=== PATIENT | female | born 1985 | race Caucasian/White ===

== ENCOUNTER 2019-05-02 11:44 | Emergency (ER) | payer OTHER, SELFPAY ==
[2019-05-02] VITALS (7 sets, daily range): BP systolic 110–127; BP diastolic 62–78; PULSE 65–95; RESP 12–17; TEMP 36.9; O2SAT 97–99; BMI 22.8
--- NOTE | 2019-05-02 11:56 | DI.RAD.S_ITS ---
PROCEDURE: XR CHEST 1V INDICATIONS: chest pain TECHNIQUE: One view of the chest was acquired. COMPARISON: None. FINDINGS: Surgical changes and devices: None. Lungs and pleura: There is a faint hazy opacity projecting over the right lung base. Prominence of pulmonary vasculature noted. No pleural effusions or pneumothorax. Mediastinum: Mediastinal contours appear normal. Heart size is normal. Bones and chest wall: No suspicious bony lesions. Overlying soft tissues appear unremarkable. IMPRESSION: Faint hazy right lung base opacity likely representing atelectasis or superimposition artifact, less likely atelectasis or pneumonia. Dictated by: Miguel Cade M.D. on 05/02/2019 at 12:41 Approved by: Miguel Cade M.D. on 05/02/2019 at 12:43
--- NOTE | 2019-05-02 12:01 | DI.RAD.S_ITS ---
PROCEDURE: XR ANKLE LT MIN 3V INDICATIONS: injury pain TECHNIQUE: 3 views of the ankle were acquired. COMPARISON: None. FINDINGS: Bones: No fractures or dislocations. Ankle mortise is normally aligned. No suspicious bony lesions. Soft tissues: There is a trace ankle joint effusion. There is moderate soft tissue edema overlying the left lateral malleolus. IMPRESSION: Moderate soft tissue edema overlying the left lateral malleolus, without acute underlying left ankle fracture or dislocation. Consider followup radiographs in 7-10 days if there is continued clinical concern. Dictated by: Miguel Cade M.D. on 05/02/2019 at 12:43 Approved by: Miguel Cade M.D. on 05/02/2019 at 12:45
[2019-05-02 12:34] LABS: Add Manual Diff / Slide Review NO; Basophils Absolute Auto 0 /uL (0-100); Basophils Percent Auto 0.5 % (0-2); Eosinophils Absolute Auto 0 /uL (0-450); Eosinophils Percent Auto 0.3 % (2-4); Hemoglobin 14.6 g/dL (12.0-16.0); Lymphocytes Absolute Auto 700 /uL (1100-4500); Lymphocytes Percent Auto 9.1 % (25-40); Mean Corpuscular HGB Conc 33.9 % (30-36); Mean Corpuscular Volume 91.7 fL (80-100); Monocytes Absolute Auto 500 /uL (0-900); Monocytes Percent Auto 6.5 % (3-14); Neutrophils Absolute Auto 6600 /uL (1500-7000); Neutrophils Percent Auto 83.6 % (50-75); Platelet Count 235 X10^3/uL (150-400); Red Blood Cell Count 4.69 X10^6/uL (4.0-5.2); Red Cell Distribution Width 12.4 % (11.6-14.8); White Blood Cell Count 7.9 X10^3/uL (4.5-11.0)
--- NOTE | 2019-05-02 12:35 | PC.NURSE ---
states standing, then developed abdominal pain, +nausea, +hot then syncope, father in law woke her up, stood her up then passed out again, pt sitting down and again passed out. occured this morning at 9am, every 5 minutes. +food allergies. denies fever,coughing,vomiting or diarrhea.
[2019-05-02 12:41] LABS: INR 0.9 (0.9-1.3); Prothrombin Time 10.8 SECONDS (10.1-12.7)
[2019-05-02 12:44] LABS: PTT Partial Thromboplastin Tim 24 SECONDS (26.4-36.2)
[2019-05-02 12:46] LABS: Alanine Aminotransferase 27 IU/L (9-52); Albumin 4.8 g/dL (3.5-5.0); Albumin Globulin Ratio 1.7 (1.0-2.8); Alkaline Phosphatase 63 U/L (38-126); Aspartate Aminotransferase 20 IU/L (14-36); BUN Creatinine Ratio 13.8 (6-22); Bilirubin Total 0.7 mg/dL (0.2-1.3); Blood Urea Nitrogen 11 mg/dL (7-17); Calcium 9.7 mg/dL (8.4-10.2); Carbon Dioxide 26 mmol/L (22-32); Chloride 106 mmol/L (98-107); Creatine Kinase 43 U/L (30-135); Estimated Glomerular Filt Rate > 60.0 mL/min (>60); Globulin 2.9 g/dL (1.7-4.1); Glucose 98 mg/dL (70-100); HEMOLYSIS < 15 (0-50); Lipase 170 U/L (23-300); Potassium 4.4 mmol/L (3.4-5.1); Sodium 142 mmol/L (137-145); Total Protein 7.7 g/dL (6.3-8.2)
[2019-05-02 12:57] LABS: Troponin I < 0.012 ng/mL (0.01-0.034)
--- NOTE | 2019-05-02 13:19 | ED.SYNCOPE ---
HPI - Syncope General Chief Complaint: Syncope Stated Complaint: passed out 3 times and ankle m(L) hurting BB odd Time Seen by Provider: 05/02/19 11:56 Source: patient Mode of arrival: ambulatory Limitations: no limitations History of Present Illness HPI narrative: Patient presents emergency department complaining of syncopal episodes today. Patient states she woke up feeling fine, and was standing in her driveway, single bite her children when she suddenly began to feel lightheaded. Patient's family told her that her face turned white, and the patient began to collapse. She twisted her ankle in the process. She states 1 of her family members grabbed her and helped her up, but she was still feeling faint and began to collapse again. Patient states she thinks that she completely lost consciousness that time, but only for a couple of seconds. She passed out the 3rd time while standing but very briefly. She states all 3 episodes happen within a period of just a couple minutes. She was helped to a chair, where she sat for about an hour. She states she had 1 further episode of dizziness, and was told her face turned white, but did not lose consciousness that time. Patient states that her [id number] who took her blood pressure a few different times, and was found to be 110-112 over 70s the both of the 1st 2 times. Patient states when she had the episode of feeling dizzy while she was sitting down, her [id number] took her blood pressure, and found that the systolic was 105. She denies any chest pain or shortness of breath. No nausea vomiting or diarrhea. No recent illnesses. No heavy vaginal bleeding or bleeding from anywhere else. Patient states she has never fainted before in her life. She does not recall feeling any palpitations at the time of the syncope or near syncope. She denies any recent head injuries. She does not drink any alcohol. Patient states she thinks that she drinks enough water, and has been eating well lately. Patient states she is on spironolactone for a skin condition, but states that she has not had the dose of this changed in 3 years. Patient states that she tries to drink plenty of fluids, and it is helpful either. She does not smoke or use any drugs. She is not known to be , and states she has not had a period in 2 years, because she is on control. No lower abdominal pain. Related Data Home Medications Medication Instructions Recorded Confirmed L norgest/e.estradiol-e.estrad 1 tab PO BEDTIME 05/02/19 05/02/19 [Camrese] spironolactone 100 mg PO BEDTIME 05/02/19 05/02/19 trazodone 200 mg PO BEDTIME 05/02/19 05/02/19 Allergies Allergy/AdvReac Type Severity Reaction Status Date / Time No Known Drug Allergies Allergy Verified 05/02/19 11:54 Review of Systems Constitutional Denies chills, Denies fever(s), Denies lethargy and Denies weakness Eyes Denies change in vision, Denies eye discharge, Denies irritation and Denies loss of vision ENT Ears, Nose, Mouth, and Throat: Denies change in voice, Denies neck pain and Denies sore throat Cardiovascular Denies chest pain, Reports syncope, Denies irregular heart rhythm, Reports lightheadedness, Denies palpitations, Denies dyspnea, Denies dyspnea on exertion and Denies orthopnea Respiratory Denies cough, Denies dyspnea, Denies dyspnea on exertion and Denies wheezing Gastrointestinal Gastrointestinal: Denies abdominal pain, Denies change in bowel habits, Denies diarrhea, Denies nausea and Denies vomiting Genitourinary Denies hematuria, Denies flank pain, Denies urinary incontinence and Denies urinary urgency Musculoskeletal Denies neck pain Integumentary/Breasts Denies pruritus, Denies erythema, Denies rash and Denies wounds Neurologic Denies confusion, Reports syncope, Denies loss of vision and Denies weakness Psychiatric Denies anxiety, Denies confusion, Denies depression, Denies homicidal ideation and Denies suicidal ideation Endocrine Denies palpitations Hematologic/Lymphatic Denies easy bruising Allergic/Immunologic Denies wheezing [facility] Medical History Acne (Acute) Surgical History No pertinent past surgical history (Acute) Social History (Updated 05/02/19 @ 13:27 by Jo-Ann Rene MD) Smoking Status: Never smoker Exam Initial Vital Signs Initial Vital Signs: Vital Signs Temperature 98.4 F 05/02/19 11:54 Pulse Rate 95 H 05/02/19 11:54 Respiratory Rate 05/02/19 11:54 Blood Pressure 127/74 05/02/19 11:54 Pulse Oximetry 98 05/02/19 11:54 Const General: cooperative and well developed Nutritional Appearance: well nourished Orientation: alert, awake, oriented x3 and not confused [facility] Head: normocephalic and atraumatic Ears: external ears normal Nose: external nose normal and No nasal discharge Face and sinus: face symmetric and No dry mucous membranes Mouth: oral mucosae normal and moist mucous membranes Teeth and gingiva: dentition normal Eyes General: appearance normal, both eyes and all related structures Eyelids: eyelids normal Conjunctivae: conjunctivae normal Sclera: sclerae normal Pupils: PERRL EOM: EOM intact bilaterally Neck Neck: normal visual inspection, trachea midline, No lymphadenopathy, No midline deformity and No JVD Lymphatic: No lymphedema Chest Chest: normal inspection of the chest Resp Effort & Inspection: normal respiratory effort, able to speak in complete sentences, no respiratory distress and no use of accessory muscles Auscultation: clear to auscultation bilaterally, no rales, no rhonchi and no wheezes Cardio Rate: regular rate Rhythm: regular rhythm Heart Sounds: no click, no gallops, no murmurs and no rubs Pulses: normal peripheral pulses GI Inspection: non-distended Palpation: soft, no hepatosplenomegaly, No guarding, No pulsatile mass and No tender Auscultation: normal bowel sounds Back/Spine/Pelvis Back: No CVA tenderness Cervical Spine: cervical ROM normal and No pain with cervical ROM Thoracic/Lumbar Spine: thoracic and lumbar spine normal to inspection Skin General: no rashes or lesions noted, No jaundice and No petechiae Neuro General: alert, oriented x3, gait normal and no focal motor deficits Speech: speech normal Extrem General: full ROM, no pedal edema and no calf tenderness Other: Patient has moderate edema over her left lateral malleolus, and mild tenderness. No deformity. Distal pulses are intact. Psych Appearance: well kempt Mental Status: mental status grossly normal Attitude: cooperative Thought Content: normal and suicidality Judgment: judgment good Course Course Narrative: Patient appeared well overall in the emergency department. Her cardiac rhythm was normal, and her blood pressure was also normal. She was worked up for her syncopal episodes with EKG, chest x-ray, and labs, and was worked up for her ankle injury with an x-ray of the ankle. X-rays of the chest and ankle were negative. The patient was placed in an air splint and given a pair of crutches. She had been given IV fluids in the emergency department, and reported feeling better. She had gotten up from the bed to be wheeled to the bathroom, as she did not want to walk on her ankle, and had done fine with this, with no further episodes of lightheadedness. We have discussed follow-up for the patient's syncopal episodes, and that it would be beneficial for her to discuss wearing a Holter monitor with her primary care physician. There is no evidence of an emergent cause of the patient's symptoms today. However, we have discussed that should the patient have more episodes like this in the next 24 hours, she would most likely benefit from admission to the hospital with monitoring. Orders Ordered: ED Orders 05/02/19 11:52 EKG-12 Lead Stat 05/02/19 11:56 XR chest 1V Stat 05/02/19 12:01 XR ankle LT min 3V Stat 05/02/19 12:24 Urinalysis and Microscopic Stat 05/02/19 12:25 Complete Blood Count AUTO DIFF Stat Comprehensive Metabolic Panel Stat Lipase Stat Partial Thromboplastin Time Stat Prothrombin Time INR Stat Troponin & CK Cardiac Panel Stat Discontinued Medications Sodium Chloride (Normal Saline 0.9%) 1,000 mls @ 500 mls/hr IV BOLUS ONE Stop: 05/02/19 15:57 Last Infusion: 05/02/19 15:50 Dose: 0 mls/hr Admin: 05/02/19 14:30 Dose: 500 mls/hr Vital Signs - 8 hr 05/02/19 11:54 05/02/19 12:00 05/02/19 12:54 Temperature 98.4 F Pulse Rate 95 H 82 74 Respiratory Rate 17 12 17 Blood Pressure 127/74 Blood Pressure [Right Arm] 121/62 110/68 Pulse Oximetry 98 97 99 05/02/19 13:45 05/02/19 14:49 05/02/19 15:54 Temperature Pulse Rate 82 65 69 Respiratory Rate 16 Blood Pressure Blood Pressure [Right Arm] 112/66 123/65 116/78 Pulse Oximetry 97 98 05/02/19 15:55 Temperature Pulse Rate 70 Respiratory Rate Blood Pressure Blood Pressure [Right Arm] 116/70 Pulse Oximetry MDM - Syncope Medical Records Attestation: I reviewed the patient's medical records. Lab Data Attestation: I reviewed the patient's lab results. Result diagrams: 05/02/19 12:25 05/02/19 12:25 Lab Results 05/02/19 05/02/19 05/02/19 Range/Units 12:24 12:25 12:25 WBC 7.9 (4.5-11.0) X10^3/uL RBC 4.69 (4.0-5.2) X10^6/uL Hgb 14.6 (12.0-16.0) g/dL Hct 43.0 (36-46) % MCV 91.7 (80-100) fL MCH 31.0 (26-34) PG MCHC 33.9 (30-36) % RDW 12.4 (11.6-14.8) % Plt Count 235 (150-400) X10^3/uL Neut % (Auto) 83.6 H (50-75) % Lymph % (Auto) 9.1 L (25-40) % Davidson % (Auto) 6.5 (3-14) % Eos % (Auto) 0.3 L (2-4) % Baso % (Auto) 0.5 (0-2) % Neut # (Auto) 6600 (0093-1831) /uL Lymph # (Auto) 700 L (8275-0975) /uL Davidson # (Auto) 500 (0-900) /uL Eos # (Auto) 0 (0-450) /uL Baso # (Auto) 0 (0-100) /uL PT 10.8 (10.1-12.7) SECONDS INR 0.9 (0.9-1.3) APTT 24 L (26.4-36.2) SECONDS Sodium (137-145) mmol/L Potassium (3.4-5.1) mmol/L Chloride (98-107) mmol/L Carbon Dioxide (22-32) mmol/L BUN (7-17) mg/dL Creatinine (0.52-1.04) mg/dL Estimated GFR (>60) mL/min BUN/Creatinine Ratio (6-22) Glucose (70-100) mg/dL Calcium (8.4-10.2) mg/dL Total Bilirubin (0.2-1.3) mg/dL AST (14-36) IU/L ALT (9-52) IU/L Alkaline Phosphatase (38-126) U/L Total Creatine Kinase (30-135) U/L CK-MB (CK-2) CK-MB (CK-2) Rel Index Troponin I (0.01-0.034) ng/mL Total Protein (6.3-8.2) g/dL Albumin (3.5-5.0) g/dL Globulin (1.7-4.1) g/dL Albumin/Globulin Ratio (1.0-2.8) Lipase (23-300) U/L Urine Color Yellow Urine Appearance Clear Urine pH 6.5 (4.5-8.0) Ur Specific [place] 1.010 (1.000-1.035) Urine Protein Negative (Negative) Urine Glucose (UA) Negative (Negative) g/dL Urine Ketones Negative (NEGATIVE) Urine Occult Blood Negative (Negative) Urine Nitrate Negative (Negative) Urine Bilirubin Negative (NEGATIVE) Urine Urobilinogen 0.2 (0.2) E.U./dL Ur Leukocyte Esterase Negative (NEGATIVE) Urine RBC None seen (0-5/HPF) Urine WBC None seen (0-5/HPF) Ur Squamous Epith Cells 1-5 /hpf (0-5/HPF) Urine Bacteria Occasional (0-1) (None) Urine Mucus 1+ H (Negative) Ur Culture Indicated? Cult not indicated 05/02/19 Range/Units 12:25 WBC (4.5-11.0) X10^3/uL RBC (4.0-5.2) X10^6/uL Hgb (12.0-16.0) g/dL Hct (36-46) % MCV (80-100) fL MCH (26-34) PG MCHC (30-36) % RDW (11.6-14.8) % Plt Count (150-400) X10^3/uL Neut % (Auto) (50-75) % Lymph % (Auto) (25-40) % [place] % (Auto) (3-14) % Eos % (Auto) (2-4) % Baso % (Auto) (0-2) % Neut # (Auto) (2941-4667) /uL Lymph # (Auto) (0690-7026) /uL Davidson # (Auto) (0-900) /uL Eos # (Auto) (0-450) /uL Baso # (Auto) (0-100) /uL PT (10.1-12.7) SECONDS INR (0.9-1.3) APTT (26.4-36.2) SECONDS Sodium 142 (137-145) mmol/L Potassium 4.4 (3.4-5.1) mmol/L Chloride 106 (98-107) mmol/L Carbon Dioxide 26 (22-32) mmol/L BUN 11 (7-17) mg/dL Creatinine 0.80 (0.52-1.04) mg/dL Estimated GFR > 60.0 (>60) mL/min BUN/Creatinine Ratio 13.8 (6-22) Glucose 98 (70-100) mg/dL Calcium 9.7 (8.4-10.2) mg/dL Total Bilirubin 0.7 (0.2-1.3) mg/dL AST 20 (14-36) IU/L ALT 27 (9-52) IU/L Alkaline Phosphatase 63 (38-126) U/L Total Creatine Kinase 43 (30-135) U/L CK-MB (CK-2) TNP CK-MB (CK-2) Rel Index TNP Troponin I < 0.012 (0.01-0.034) ng/mL Total Protein 7.7 (6.3-8.2) g/dL Albumin 4.8 (3.5-5.0) g/dL Globulin 2.9 (1.7-4.1) g/dL Albumin/Globulin Ratio 1.7 (1.0-2.8) Lipase 170 (23-300) U/L Urine Color Urine Appearance Urine pH (4.5-8.0) Ur Specific [place] (1.000-1.035) Urine Protein (Negative) Urine Glucose (UA) (Negative) g/dL Urine Ketones (NEGATIVE) Urine Occult Blood (Negative) Urine Nitrate (Negative) Urine Bilirubin (NEGATIVE) Urine Urobilinogen (0.2) E.U./dL Ur Leukocyte Esterase (NEGATIVE) Urine RBC (0-5/HPF) Urine WBC (0-5/HPF) Ur Squamous Epith Cells (0-5/HPF) Urine Bacteria (None) Urine Mucus (Negative) Ur Culture Indicated? Point of Care Testing Test Results Negative Imaging Data Ankle x-ray: Radiologist's impression: PROCEDURE: XR ANKLE LT MIN 3V INDICATIONS: injury pain TECHNIQUE: 3 views of the ankle were acquired. COMPARISON: None. FINDINGS: Bones: No fractures or dislocations. Ankle mortise is normally aligned. No suspicious bony lesions. Soft tissues: There is a trace ankle joint effusion. There is moderate soft tissue edema overlying the left lateral malleolus. IMPRESSION: Moderate soft tissue edema overlying the left lateral malleolus, without acute underlying left ankle fracture or dislocation. Consider followup radiographs in 7-10 days if there is continued clinical concern. Dictated by: Miguel Cade M.D. on 05/02/2019 at 12:43 Approved by: Miguel Cade M.D. on 05/02/2019 at 12:45 Chest x-ray: Radiologist's impression: PROCEDURE: XR CHEST 1V INDICATIONS: chest pain TECHNIQUE: One view of the chest was acquired. COMPARISON: None. FINDINGS: Surgical changes and devices: None. Lungs and pleura: There is a faint hazy opacity projecting over the right lung base. Prominence of pulmonary vasculature noted. No pleural effusions or pneumothorax. Mediastinum: Mediastinal contours appear normal. Heart size is normal. Bones and chest wall: No suspicious bony lesions. Overlying soft tissues appear unremarkable. IMPRESSION: Faint hazy right lung base opacity likely representing atelectasis or superimposition artifact, less likely atelectasis or pneumonia. Dictated by: Miguel Cade M.D. on 05/02/2019 at 12:41 Approved by: Miguel Cade M.D. on 05/02/2019 at 12:43 ECG Data Attestation: I personally reviewed and interpreted this ECG as follows: (See below) Interpretation: Twelve lead EKG performed May 02, 2019 1152, as follows: Regular ventricular rhythm with a rate of 71 beats per minute GA interval 150 milliseconds QRS duration 86 millisecond QTC interval 373 millisecond No ectopy No significant ST T wave changes Interpretation: Sinus rhythm with sinus arrhythmia; no signs of acute ischemia; normal EKG as interpreted by ED MD. Discharge Plan Departure Patient Disposition: Home Clinical Impression: Syncope Qualifiers: Syncope type: unspecified Qualified Code(s): R55 - Syncope and collapse Discharge Date/Time: 05/02/19 16:04 Interventions: ED Discharge Assessment Last Done: 05/02/19 16:04 Instructions: DI for Syncope in Adults (Fainting) Activity Restrictions/Additional Instructions: Your labs, EKG, and x-rays of the chest and ankle all look good. As we have discussed, they are very many causes potentially for fainting. There is no evidence of the serious causes today. It is important that you follow up with your primary care physician within the next week to discuss wearing a optometric technician to see, should any further episodes happen, if your heart is going into an abnormal rhythm. If you go home and further episodes occur at home in the next 24 hours, then you need to come back to the emergency department and we will admit you to the hospital. Prescriptions: No Action trazodone 100 mg tablet 200 mg PO BEDTIME RF: 0 L norgest/e.estradiol-e.estrad [Camrese] 0.15 mg-30 mcg (84)/10 mcg (7) Tablets,Dose Pack,3 Month 1 tab PO BEDTIME RF: 0 spironolactone 50 mg Tablet 100 mg PO BEDTIME RF: 0 Referrals: [facility] [Provider Group]
--- NOTE | 2019-05-02 13:30 | ED_ITS ---
HPI - Syncope General Chief Complaint: Syncope Stated Complaint: passed out 3 times and ankle m(L) hurting BB odd Time Seen by Provider: 05/02/19 11:56 Source: patient Mode of arrival: ambulatory Limitations: no limitations History of Present Illness HPI narrative: Patient presents emergency department complaining of syncopal episodes today. Patient states she woke up feeling fine, and was standing in her driveway, single bite her children when she suddenly began to feel lightheaded. Patient's family told her that her face turned white, and the patient began to collapse. She twisted her ankle in the process. She states 1 of her family members grabbed her and helped her up, but she was still feeling faint and began to collapse again. Patient states she thinks that she completely lost consciousness that time, but only for a couple of seconds. She passed out the 3rd time while standing but very briefly. She states all 3 episodes happen within a period of just a couple minutes. She was helped to a chair, where she sat for about an hour. She states she had 1 further episode of dizziness, and was told her face turned white, but did not lose consciousness that time. Patient states that her [id number] who took her blood pressure a few different times, and was found to be 110-112 over 70s the both of the 1st 2 times. Patient states when she had the episode of feeling dizzy while she was sitting down, her [id number] took her blood pressure, and found that the systolic was 105. She denies any chest pain or shortness of breath. No nausea vomiting or diarrhea. No recent illnesses. No heavy vaginal bleeding or bleeding from anywhere else. Patient states she has never fainted before in her life. She does not recall feeling any palpitations at the time of the syncope or near syncope. She denies any recent head injuries. She does not drink any alcohol. Patient states she thinks that she drinks enough water, and has been eating well lately. Patient states she is on spironolactone for a skin condition, but states that she has not had the dose of this changed in 3 years. Patient states that she tries to drink plenty of fluids, and it is helpful either. She does not smoke or use any drugs. She is not known to be , and states she has not had a period in 2 years, because she is on control. No lower abdominal pain. Related Data Home Medications Medication Instructions Recorded Confirmed L norgest/e.estradiol-e.estrad 1 tab PO BEDTIME 05/02/19 05/02/19 [Camrese] spironolactone 100 mg PO BEDTIME 05/02/19 05/02/19 trazodone 200 mg PO BEDTIME 05/02/19 05/02/19 Allergies Allergy/AdvReac Type Severity Reaction Status Date / Time No Known Drug Allergies Allergy Verified 05/02/19 11:54 Review of Systems Constitutional Denies chills, Denies fever(s), Denies lethargy and Denies weakness Eyes Denies change in vision, Denies eye discharge, Denies irritation and Denies loss of vision ENT Ears, Nose, Mouth, and Throat: Denies change in voice, Denies neck pain and Denies sore throat Cardiovascular Denies chest pain, Reports syncope, Denies irregular heart rhythm, Reports lightheadedness, Denies palpitations, Denies dyspnea, Denies dyspnea on exertion and Denies orthopnea Respiratory Denies cough, Denies dyspnea, Denies dyspnea on exertion and Denies wheezing Gastrointestinal Gastrointestinal: Denies abdominal pain, Denies change in bowel habits, Denies diarrhea, Denies nausea and Denies vomiting Genitourinary Denies hematuria, Denies flank pain, Denies urinary incontinence and Denies urinary urgency Musculoskeletal Denies neck pain Integumentary/Breasts Denies pruritus, Denies erythema, Denies rash and Denies wounds Neurologic Denies confusion, Reports syncope, Denies loss of vision and Denies weakness Psychiatric Denies anxiety, Denies confusion, Denies depression, Denies homicidal ideation a nd Denies suicidal ideation Endocrine Denies palpitations Hematologic/Lymphatic Denies easy bruising Allergic/Immunologic Denies wheezing [facility] Medical History Acne (Acute) Surgical History No pertinent past surgical history (Acute) Social History (Updated 05/02/19 @ 13:27 by Jo-Ann Rene MD) Smoking Status: Never smoker Exam Initial Vital Signs Initial Vital Signs: Vital Signs Temperature 98.4 F 05/02/19 11:54 Pulse Rate 95 H 05/02/19 11:54 Respiratory Rate 05/02/19 11:54 Blood Pressure 127/74 05/02/19 11:54 Pulse Oximetry 98 05/02/19 11:54 Const General: cooperative and well developed Nutritional Appearance: well nourished Orientation: alert, awake, oriented x3 and not confused [facility] Head: normocephalic and atraumatic Ears: external ears normal Nose: external nose normal and No nasal discharge Face and sinus: face symmetric and No dry mucous membranes Mouth: oral mucosae normal and moist mucous membranes Teeth and gingiva: dentition normal Eyes General: appearance normal, both eyes and all related structures Eyelids: eyelids normal Conjunctivae: conjunctivae normal Sclera: sclerae normal Pupils: PERRL EOM: EOM intact bilaterally Neck Neck: normal visual inspection, trachea midline, No lymphadenopathy, No midline deformity and No JVD Lymphatic: No lymphedema Chest Chest: normal inspection of the chest Resp Effort & Inspection: normal respiratory effort, able to speak in complete sentences, no respiratory distress and no use of accessory muscles Auscultation: clear to auscultation bilaterally, no rales, no rhonchi and no wheezes Cardio Rate: regular rate Rhythm: regular rhythm Heart Sounds: no click, no gallops, no murmurs and no rubs Pulses: normal peripheral pulses GI Inspection: non-distended Palpation: soft, no hepatosplenomegaly, No guarding, No pulsatile mass and No tender Auscultation: normal bowel sounds Back/Spine/Pelvis Back: No CVA tenderness Cervical Spine: cervical ROM normal and No pain with cervical ROM Thoracic/Lumbar Spine: thoracic and lumbar spine normal to inspection Skin General: no rashes or lesions noted, No jaundice and No petechiae Neuro General: alert, oriented x3, gait normal and no focal motor deficits Speech: speech normal Extrem General: full ROM, no pedal edema and no calf tenderness Other: Patient has moderate edema over her left lateral malleolus, and mild tenderness. No deformity. Distal pulses are intact. Psych Appearance: well kempt Mental Status: mental status grossly normal Attitude: cooperative Thought Content: normal and suicidality Judgment: judgment good Course Course Narrative: Patient appeared well overall in the emergency department. Her cardiac rhythm was normal, and her blood pressure was also normal. She was worked up for her syncopal episodes with EKG, chest x-ray, and labs, and was worked up for her ankle injury with an x-ray of the ankle. X-rays of the chest and ankle were negative. The patient was placed in an air splint and given a pair of crutches. She had been given IV fluids in the emergency department, and reported feeling better. She had gotten up from the bed to be wheeled to the bathroom, as she did not want to walk on her ankle, and had done fine with this, with no further episodes of lightheadedness. We have discussed follow-up for the patient's syncopal episodes, and that it would be beneficial for her to discuss wearing a Holter monitor with her primary care physician. There is no evidence of an emergent cause of the patient's symptoms today. However, we have discussed that should the patient have more episodes like this in the next 24 hours, she would most likely benefit from admission to the hospital with monitoring. Orders Ordered: ED Orders 05/02/19 11:52 EKG-12 Lead Stat 05/02/19 11:56 XR chest 1V Stat 05/02/19 12:01 XR ankle LT min 3V Stat 05/02/19 12:24 Urinalysis and Microscopic Stat 05/02/19 12:25 Complete Blood Count AUTO DIFF Stat Comprehensive Metabolic Panel Stat Lipase Stat Partial Thromboplastin Time Stat Prothrombin Time INR Stat Troponin & CK Cardiac Panel Stat Discontinued Medications Sodium Chloride (Normal Saline 0.9%) 1,000 mls @ 500 mls/hr IV BOLUS ONE Stop: 05/02/19 15:57 Last Infusion: 05/02/19 15:50 Dose: 0 mls/hr Admin: 05/02/19 14:30 Dose: 500 mls/hr Vital Signs - 8 hr 05/02/19 11:54 05/02/19 12:00 05/02/19 12:54 Temperature 98.4 F Pulse Rate 95 H 82 74 Respiratory Rate 17 12 17 Blood Pressure 127/74 Blood Pressure [Right Arm] 121/62 110/68 Pulse Oximetry 98 97 99 05/02/19 13:45 05/02/19 14:49 05/02/19 15:54 Temperature Pulse Rate 82 65 69 Respiratory Rate 16 Blood Pressure Blood Pressure [Right Arm] 112/66 123/65 116/78 Pulse Oximetry 97 98 05/02/19 15:55 Temperature Pulse Rate 70 Respiratory Rate Blood Pressure Blood Pressure [Right Arm] 116/70 Pulse Oximetry MDM - Syncope Medical Records Attestation: I reviewed the patient's medical records. Lab Data Attestation: I reviewed the patient's lab results. Result diagrams: 05/02/19 12:25 05/02/19 12:25 Lab Results 05/02/19 05/02/19 05/02/19 Range/Units 12:24 12:25 12:25 WBC 7.9 (4.5-11.0) X10^3/uL RBC 4.69 (4.0-5.2) X10^6/uL Hgb 14.6 (12.0-16.0) g/dL Hct 43.0 (36-46) % MCV 91.7 (80-100) fL MCH 31.0 (26-34) PG MCHC 33.9 (30-36) % RDW 12.4 (11.6-14.8) % Plt Count 235 (150-400) X10^3/uL Neut % (Auto) 83.6 H (50-75) % Lymph % (Auto) 9.1 L (25-40) % [place] % (Auto) 6.5 (3-14) % Eos % (Auto) 0.3 L (2-4) % Baso % (Auto) 0.5 (0-2) % Neut # (Auto) 6600 (0027-7521) /uL Lymph # (Auto) 700 L (0197-3993) /uL [place] # (Auto) 500 (0-900) /uL Eos # (Auto) 0 (0-450) /uL Baso # (Auto) 0 (0-100) /uL PT 10.8 (10.1-12.7) SECONDS INR 0.9 (0.9-1.3) APTT 24 L (26.4-36.2) SECONDS Sodium (137-145) mmol/L Potassium (3.4-5.1) mmol/L Chloride (98-107) mmol/L Carbon Dioxide (22-32) mmol/L BUN (7-17) mg/dL Creatinine (0.52-1.04) mg/dL Estimated GFR (>60) mL/min BUN/Creatinine Ratio (6-22) Glucose (70-100) mg/dL Calcium (8.4-10.2) mg/dL Total Bilirubin (0.2-1.3) mg/dL AST (14-36) IU/L ALT (9-52) IU/L Alkaline Phosphatase (38-126) U/L Total Creatine Kinase (30-135) U/L CK-MB (CK-2) CK-MB (CK-2) Rel Index Troponin I (0.01-0.034) ng/mL Total Protein (6.3-8.2) g/dL Albumin (3.5-5.0) g/dL Globulin (1.7-4.1) g/dL Albumin/Globulin Ratio (1.0-2.8) Lipase (23-300) U/L Urine Color Yellow Urine Appearance Clear Urine pH 6.5 (4.5-8.0) Ur Specific [place] 1.010 (1.000-1.035) Urine Protein Negative (Negative) Urine Glucose (UA) Negative (Negative) g/dL Urine Ketones Negative (NEGATIVE) Urine Occult Blood Negative (Negative) Urine Nitrate Negative (Negative) Urine Bilirubin Negative (NEGATIVE) Urine Urobilinogen 0.2 (0.2) E.U./dL Ur Leukocyte Esterase Negative (NEGATIVE) Urine RBC None seen (0-5/HPF) Urine WBC None seen (0-5/HPF) Ur Squamous Epith Cells 1-5 /hpf (0-5/HPF) Urine Bacteria Occasional (0-1) (None) Urine Mucus 1+ H (Negative) Ur Culture Indicated? Cult not indicated 05/02/19 Range/Units 12:25 WBC (4.5-11.0) X10^3/uL RBC (4.0-5.2) X10^6/uL Hgb (12.0-16.0) g/dL Hct (36-46) % MCV (80-100) fL MCH (26-34) PG MCHC (30-36) % RDW (11.6-14.8) % Plt Count (150-400) X10^3/uL Neut % (Auto) (50-75) % Lymph % (Auto) (25-40) % [place] % (Auto) (3-14) % Eos % (Auto) (2-4) % Baso % (Auto) (0-2) % Neut # (Auto) (5311-5627) /uL Lymph # (Auto) (4241-9335) /uL [place] # (Auto) (0-900) /uL Eos # (Auto) (0-450) /uL Baso # (Auto) (0-100) /uL PT (10.1-12.7) SECONDS INR (0.9-1.3) APTT (26.4-36.2) SECONDS Sodium 142 (137-145) mmol/L Potassium 4.4 (3.4-5.1) mmol/L Chloride 106 (98-107) mmol/L Carbon Dioxide 26 (22-32) mmol/L BUN 11 (7-17) mg/dL Creatinine 0.80 (0.52-1.04) mg/dL Estimated GFR > 60.0 (>60) mL/min BUN/Creatinine Ratio 13.8 (6-22) Glucose 98 (70-100) mg/dL Calcium 9.7 (8.4-10.2) mg/dL Total Bilirubin 0.7 (0.2-1.3) mg/dL AST 20 (14-36) IU/L ALT 27 (9-52) IU/L Alkaline Phosphatase 63 (38-126) U/L Total Creatine Kinase 43 (30-135) U/L CK-MB (CK-2) TNP CK-MB (CK-2) Rel Index TNP Troponin I < 0.012 (0.01-0.034) ng/mL Total Protein 7.7 (6.3-8.2) g/dL Albumin 4.8 (3.5-5.0) g/dL Globulin 2.9 (1.7-4.1) g/dL Albumin/Globulin Ratio 1.7 (1.0-2.8) Lipase 170 (23-300) U/L Urine Color Urine Appearance Urine pH (4.5-8.0) Ur Specific [place] (1.000-1.035) Urine Protein (Negative) Urine Glucose (UA) (Negative) g/dL Urine Ketones (NEGATIVE) Urine Occult Blood (Negative) Urine Nitrate (Negative) Urine Bilirubin (NEGATIVE) Urine Urobilinogen (0.2) E.U./dL Ur Leukocyte Esterase (NEGATIVE) Urine RBC (0-5/HPF) Urine WBC (0-5/HPF) Ur Squamous Epith Cells (0-5/HPF) Urine Bacteria (None) Urine Mucus (Negative) Ur Culture Indicated? Point of Care Testing Test Results Negative Imaging Data Ankle x-ray: Radiologist's impression: PROCEDURE: XR ANKLE LT MIN 3V INDICATIONS: injury pain TECHNIQUE: 3 views of the ankle were acquired. COMPARISON: None. FINDINGS: Bones: No fractures or dislocations. Ankle mortise is normally aligned. No suspicious bony lesions. Soft tissues: There is a trace ankle joint effusion. There is moderate soft tissue edema overlying the left lateral malleolus. IMPRESSION: Moderate soft tissue edema overlying the left lateral malleolus, without acute underlying left ankle fracture or dislocation. Consider followup radiographs in 7-10 days if there is continued clinical concern. Dictated by: Miguel Cade M.D. on 05/02/2019 at 12:43 Approved by: Miguel Cade M.D. on 05/02/2019 at 12:45 Chest x-ray: Radiologist's impression: PROCEDURE: XR CHEST 1V INDICATIONS: chest pain TECHNIQUE: One view of the chest was acquired. COMPARISON: None. FINDINGS: Surgical changes and devices: None. Lungs and pleura: There is a faint hazy opacity projecting over the right lung base. Prominence of pulmonary vasculature noted. No pleural effusions or pneumothorax. Mediastinum: Mediastinal contours appear normal. Heart size is normal. Bones and chest wall: No suspicious bony lesions. Overlying soft tissues appear unremarkable. IMPRESSION: Faint hazy right lung base opacity likely representing atelectasis or superimposition artifact, less likely atelectasis or pneumonia. Dictated by: Miguel Cade M.D. on 05/02/2019 at 12:41 Approved by: Miguel Cade M.D. on 05/02/2019 at 12:43 ECG Data Attestation: I personally reviewed and interpreted this ECG as follows: (See below) Interpretation: Twelve lead EKG performed May 02, 2019 1152, as follows: Regular ventricular rhythm with a rate of 71 beats per minute NH interval 150 milliseconds QRS duration 86 millisecond QTC interval 373 millisecond No ectopy No significant ST T wave changes Interpretation: Sinus rhythm with sinus arrhythmia; no signs of acute ischemia; normal EKG as interpreted by ED MD. Discharge Plan Departure Patient Disposition: Home Clinical Impression: Syncope Qualifiers: Syncope type: unspecified Qualified Code(s): R55 - Syncope and collapse Discharge Date/Time: 07/17/19 16:04 Interventions: ED Discharge Assessment Last Done: 05/02/19 16:04 Instructions: DI for Syncope in Adults (Fainting) Activity Restrictions/Additional Instructions: Your labs, EKG, and x-rays of the chest and ankle all look good. As we have discussed, they are very many causes potentially for fainting. There is no evidence of the serious causes today. It is important that you follow up with your primary care physician within the next week to discuss wearing a child monitor to see, should any further episodes happen, if your heart is going into an abnormal rhythm. If you go home and further episodes occur at home in the n ext 24 hours, then you need to come back to the emergency department and we will admit you to the hospital. Prescriptions: No Action trazodone 100 mg tablet 200 mg PO BEDTIME RF: 0 L norgest/e.estradiol-e.estrad [Camrese] 0.15 mg-30 mcg (84)/10 mcg (7) Tablets,Dose Pack,3 Month 1 tab PO BEDTIME RF: 0 spironolactone 50 mg Tablet 100 mg PO BEDTIME RF: 0 Referrals: [facility] [Provider Group]
[2019-05-02 13:43] LABS: RBC Urine None Seen (0-5/HPF); WBC Urine None Seen (0-5/HPF)
[2019-05-02 13:44] LABS: Appearance Urine UA CLEAR; Bilirubin Urine UA NEGATIVE (NEGATIVE); Color Urine UA YELLOW; Glucose Urine UA NEGATIVE (Negative); Ketones Urine UA NEGATIVE (NEGATIVE); Leukocyte Esterase Urine UA NEGATIVE (NEGATIVE); Nitrite Urine UA NEGATIVE (Negative); Occult Blood Urine UA NEGATIVE (Negative); Protein Urine UA NEGATIVE (Negative); Urobilinogen Urine UA 0.2 E.U./dL (0.2); pH Urine UA 6.5 (4.5-8.0)
[2019-05-02 13:54] LABS: Bacteria Urine Occasional (0-1); Culture Indicated Urine Cult Not Indicated; Mucus Urine 1+ (Negative); Squamous Epithelial Cell Urine 1-5 /HPF (0-5/HPF)
[2019-05-02] MEDS: SODIUM CHLORIDE 0.9% 1,000 ML 500 ML IV (14:30)
== END 2019-05-02 16:04 | disposition home or self-care (01) ==
PROVIDERS: Emergency Provider Emergency Medicine
DX: R55 Syncope and collapse (principal); M25.572 Pain in left ankle and joints of left foot
CPT/HCPCS: 29540; 36591; 71045; 73610; 80053; 81001; 81025; 82550; 83690; 84484; 85025; 85610; 85730; 93005; 96360; 99285

== ENCOUNTER → 2022-05-14 13:57 | Outpatient (CLI) | payer OTHER, SELFPAY ==
[2022-05-14 15:11] LABS: COVID19 -Nasal RAPID Negative (Negative)
== END ==
PROVIDERS: PCP Physician Assistant Medical; Visit Provider Obstetrics & Gynecology
DX: Z20.822 Contact with and (suspected) exposure to COVID-19 (principal); Z01.812 Encounter for preprocedural laboratory examination
CPT/HCPCS: 87635

== ENCOUNTER 2022-05-17 06:30 | Day surgery (SDC) | payer OTHER, SELFPAY ==
[2022-05-17] VITALS (7 sets, daily range): BP systolic 105–127; BP diastolic 53–77; PULSE 77–93; RESP 16–19; TEMP 36.6–37.1; O2SAT 99–100; BMI 22.6
--- NOTE | 2022-05-17 | PATH_ITS ---
[facility] Accession Number: [id number] No. of containers..01 Tissue . 01 Material submitted: . fallopian tube - BILATERAL FALLOPIAN TUBES . 01 Clinical history: . LAP MATT SALPINGECTOMY . 01 Diagnosis: Bilateral Fallopian Tubes: Fallopian tubes x2, complete cross-sections; negative for atypia or malignancy. MRV 05/19/2022 1133 Local . 01 Electronically signed: . Jo-Ann Lezama MD, Pathologist NPI- [id number] . 01 Gross description: . Received in formalin and labeled with the patient's name and bilateral fallopian tubes consists of two unoriented fimbriated fallopian tube, the longest measuring 5.1 x 0.5 cm, while the shorter measures 5.0 x 0.6 cm. The longer fallopian tube has smooth violaceous serosa with no paratubal cysts identified. Serial sectioning reveals an unremarkable stellate lumen. The shorter fallopian tube has smooth violaceous serosa with no paratubal cysts. Sectioning reveals an unremarkable stellate lumen. Go Go Dancer sections of the longer fallopian tube are submitted in cassette A1, while the shorter fallopian tube is submitted in A2, to include entire fimbriae and outside sales account representative cross-sections. ([id number]) /MRV 05/18/2022 1739 Local . 01 Pathologist provided ICD-10: Z30.2 . 01 CPT . 373077 Specimen Comment: A courtesy copy of this report has been sent to [phone] Performed at: 01 [facility] [address] [place] [address] [address] [facility], [place], [place] [id number] MD Geoff Christensen MD Phone: [phone]
[2022-05-17] MEDS: LACTATED RINGERS 1,000 ML 100 ML IV (07:22)
--- NOTE | 2022-05-17 07:29 | SUR.OPER ---
Lithotomy on padded OR bed, head on pillow, arms secured on padded arm boards at <90 degrees abduction. Legs secured in padded yellow fins stirrups.
--- NOTE | 2022-05-17 07:49 | PM.HP.1 ---
History of Present Illness History of Present Illness Date Patient Seen: 05/17/22 Time Patient Seen: 07:49 Chief complaint: LAP MATT SALPINGECTOMY Narrative: Patient is a 36-year-old 4 para 4005 who presents for laparoscopic bilateral salpingectomy for permanent sterilization. Patient History Medical History (Updated 05/13/22 @ 21:59 by Ana María Nguyen) Acne Allergies (~2016) Anemia (~2006) Chicken pox (~1989) Chronic back pain Gestational diabetes (~2011) Headache Hypothyroidism (~2013) Scoliosis Shoulder pain Surgical History (Updated 05/13/22 @ 21:59 by Ana María Nguyen) Anesthesia History of bunionectomy (~07/2005) History of bunionectomy (~11/2005) No pertinent past surgical history [place] teeth removed (~03/2006) Family & Social History Family History (Updated 05/13/22 @ 22:04 by Ana María Nguyen) Mother Autoimmune disease Hyperlipidemia Dominik's disease Lyme disease Sister Hyperlipidemia Thyroid disease Anemia Grandfather Alzheimer's disease Cancer Diabetes mellitus Grandmother Cancer Diabetes mellitus Hyperlipidemia Hypertension Sarcoidosis Grandfather Leukemia Grandmother Cancer Social History: household members spouse Tobacco & Substance use: Smoking Status Never smoker alcohol intake never Substance Use Type does not use Meds Home Medications and Allergies Home Medications Medication Instructions Recorded Confirmed Type L norgest/E estradiol-E estrad 1 tab PO BEDTIME 05/02/19 05/17/22 History 0.15 mg-30 mcg (84)/10 mcg(7) tabs,3mos (Camrese) spironolactone 50 mg tablet 100 mg PO BEDTIME 05/02/19 03/31/22 History cyclobenzaprine 10 mg tablet 10 mg PO BEDTIME 03/31/22 05/17/22 History zolpidem 10 mg tablet (Ambien) 10 mg PO BEDTIME PRN Sedation 03/31/22 03/31/22 History cetirizine 1 tab PRN PRN Allergy Symptoms 05/17/22 05/17/22 History Allergies Allergy/AdvReac Type Severity Reaction Status Date / Time No Known Drug Allergies Allergy Verified 05/17/22 06:35 Exam Vital Signs (past 8 hours): - 05/17/22 06:53 Temperature 98.7 F Pulse Rate 93 H Respiratory Rate 16 Blood Pressure 110/73 Pulse Oximetry 99 Oxygen Delivery Method Room Air Oxygen Delivery Method Room Air Narrative Exam Narrative: HEENT: No thyromegaly, no anterior cervical or supraclavicular lymphadenopathy. Lungs:Clear to auscultation bilaterally, no wheezes. Cardiovascular: Regular rate and rhythm, no murmurs, rubs, or gallops. Abdomen: No scars. No hepatosplenomegaly. No masses palpable. External genitalia: Normal Vagina: Normal Cervix: Normal Bimanual exam: 7 Week size anteverted uterus. Mobile. Rectal: No masses. Assessment & Plan Assessment & Plan narrative: Assessment: 36-year-old 4 para 4005 who desires permanent sterilization Plan: Laparoscopic bilateral salpingectomy The risks, benefits, and alternatives to the procedure were explained to the patient. The risks including bleeding, infection, injury to the bowel, bladder, or ureters. She understands these risks and agrees to proceed. A full par Q was held and consent form was signed. COVID-19 COVID-19 status: Negative Result date/Date tested (Pos, Neg/Pending): 05/14/22 Time Spent With Patient Time with patient: less than 30 minutes Critical Care time: I spent a total of [] minutes of critical care time on this patient's care today; this time is exclusive of procedural time.
--- NOTE | 2022-05-17 07:51 | PM.PREOP ---
Pre-operative Note COVID-19 COVID-19 status: Negative Result date/Date tested (Pos, Neg/Pending): 05/14/22 Criteria for continued procedure: Non-surgical alternatives not available or appropriate per current SOC Interval Note History & Physical reviewed/Exam performed by Physician: Yes Changes to H&P: No H&P completed within 30 days and has changed as indicated here:: 05/17/22
[2022-05-17] MEDS: BUPIVACAINE 0.5% W/ EPI (PF) 30 ML VIAL INJ (08:36)
--- NOTE | 2022-05-17 08:52 | PM.GYNOP.1 ---
Operative Date/Time/Diagnoses Date of procedure: 05/17/22 Time of procedure: 08:52 Pre-op diagnosis: Multiparity Desires permanent sterilization Post-op diagnosis: same Procedure & Clinicians Procedure: Procedures Operation Date: 05/17/22 07:45 Actual Procedure Side Surgeon p Laparoscopic Salpingectomy Bilateral Maryann Guillen MD Indications: Multiparity Desires permanent sterilization Surgeon: Maryann Guillen Anesthesia Type: General and Local Operative Notes Findings: 7 week size anteverted uterus Normal tubes and ovaries Normal liver and gallbladder Normal appendix Closure Type: primary Specimen(s): left tube and right tube Estimated blood loss (mL): 5 Blood products transfused: none Procedure in detail: After informed consent was obtained, the patient was taken to the operating room where she was placed in the dorsal supine position. After adequate general endotracheal anesthesia was achieved, she was placed in the dorsal lithotomy position, and prepped and draped in the usual sterile fashion. A time-out was performed. A bivalve speculum was placed into the vagina and the anterior lip of the cervix was grasped with a single-tooth tenaculum. The cervical os was sequentially dilated until the Zumi uterine manipulator could pass easily into the endometrial cavity. The single-tooth tenaculum was removed from the anterior lip of the cervix. The bivalve speculum was removed from the vagina. Attention was then turned to the abdomen where 6 cc of 0.25% Marcaine with epinephrine were injected in the umbilical fold. A 5 mm incision was made. Veress needle was placed into the peritoneal cavity, and its placement confirmed by aspiration and drop test. The abdominal cavity was insufflated with 2.7 L of CO2. The Veress needle was removed, and a 5 mm trocar was placed without difficulty. Two other incisions were made 4 cm lateral to the midline at the level of the umbilicus after 6 cc of 0.25% Marcaine with epinephrine were injected. These were 5 mm incisions. Two 5 mm trocars were placed under direct visualization. The pelvis and abdomen were examined with findings noted above. The right tube was grasped with an atraumatic grasper. Using the power seal, the mesosalpinx was cauterized and cut all the way down to the cornua of the uterus. The tube was amputated at the cornua. This was repeated on the patient's left tube. The tubes were removed through the lateral trocars. The instruments were removed from the abdomen. The CO2 was allowed to escape. The trocars were removed. The incisions were repaired with 4-0 Monocryl in a subcuticular fashion. Steri-Strips and Allevyn dressings were placed. The Zumi uterine manipulator was removed from the uterus. Sponge, lap, and instrument counts were correct x2. The patient tolerated the procedure well, and was taken to PACU in stable condition. Complications: none Post-operative Condition: stable Disposition: PACU Plan for aftercare: Home after recovery
[2022-05-17] MEDS: KETOROLAC 30 MG/ML VIAL IV (09:06)
[2022-05-17] MEDS: OXYCODONE/ACETAMINOPHEN 5/325 TABLET 1 TAB PO (09:06)
--- NOTE | 2022-05-17 09:52 | SUR.PHASEII ---
Stable PACU and Phase 2 stay. Pt left when ready and left in stable condition.
== END 2022-05-17 09:45 | disposition home or self-care (01) ==
PROVIDERS: PCP Physician Assistant Medical; Referring Provider Obstetrics & Gynecology; Visit Provider Obstetrics & Gynecology
PROC: 0UT74ZZ Resection of Bilateral Fallopian Tubes, Percutaneous Endoscopic Approach (ICD-10-PCS; CPT 58661; principal; 2022-05-17 07:45)
DX: Z30.2 Encounter for sterilization (principal)
CPT/HCPCS: 58661; 81025; J0330; J1100; J1885; J2405; J2704; J3010